=== PATIENT | male | born 1980 | race Asian ===

== ENCOUNTER 2019-01-12 15:48 | Inpatient (IN) | payer MEDICARE, OTHER ==
[~2019-01-12] VITALS: Ht 160 cm; Wt 51.3 kg
[~2019-01-12 15:48] MED LIST: OLAN20TA13 PO
[2019-01-12 18:34] LABS: Basophils # (auto) 0 uL; Basophils % (auto) 0.4 % (0.0-2.0); Eosinophils # (auto) 0.1 uL; Eosinophils % (auto) 1.1 % (0.0-7.0); Hematocrit 45.1 % (41.0-53.0); Hemoglobin 15.1 g/dL (13.5-17.5); Lymphocytes # (auto) 1.7 uL; Mean Corpuscular Hemoglobin 29.3 pg (28.0-32.0); Mean Corpuscular Hgb Conc. 33.5 g/dL (32.0-36.0); Mean Corpuscular Volume 87.3 fL (80.0-100.0); Monocytes # (auto) 0.5 uL; Monocytes % (auto) 5.1 % (0.0-12.0); Neutrophils # (auto) 8.2 uL; Neutrophils % (auto) 77.4 % (37.0-80.0); Nucleated Red Blood Cells % 0.3 %; Platelet Count (auto) 289 10^3/uL (140-450); Red Blood Cells 5.17 10^6/uL (4.5-5.90); Red Cell Distribution Width 13.7 % (11.8-14.3); White Blood Cell 10.6 10^3/uL (4.4-10.8)
[2019-01-12 18:47] LABS: Albumin 3.7 g/dL (3.4-5.0); BUN/Creatinine Ratio 11.7; Calcium 8.9 mg/dL (8.5-10.1); Potassium 3.3 mmol/L (3.5-5.1)
[2019-01-12 18:52] LABS: Bilirubin, Total 0.4 mg/dL (0.2-1.0); Total Protein 7.9 g/dL (6.4-8.2)
[2019-01-13] MEDS ORDERED: ONDANSETRON HCL 4 MG/2 ML VIAL IV ONE (05:15)
[2019-01-13] MEDS ORDERED: MORPHINE SULFATE 4 MG/ML SYR/VIAL IV ONE (05:15)
[2019-01-13] MEDS ORDERED: POTASSIUM CHL 20 Meq TABLET PO ONE (06:00)
[2019-01-13 07:10] LABS: Urine Bacteria FEW /hpf (None Seen); Urine Blood 1+ /uL (Negative); Urine Specific Gravity 1.003 (1.001-1.035); Urine WBC 38 /hpf (0 - 3)
[2019-01-13] MEDS ORDERED: cefTRIAXone 1GM/50ML D5W 50 ML IV ONE (08:45)
[2019-01-13] MEDS ORDERED: MORPHINE SULF INJ 2 MG/ML SYRINGE 1ML IV PRN ×2 (11:00)
[2019-01-13] MEDS ORDERED: ONDANSETRON HCL 4 MG/2 ML VIAL IV PRN (11:00)
[2019-01-13] MEDS ORDERED: ACETAMINOPHEN 500 MG TAB PO PRN (11:00)
[2019-01-13] MEDS ORDERED: NITROGLYCERIN 0.4 MG SL TAB SL PRN (11:00)
[2019-01-13] MEDS: SODIUM CHLORIDE 0.9% 1,000 ML IV SCH (11:05)
[2019-01-13] MEDS ORDERED: LIDOCAINE 2%HCL (LOCAL ANESTH.) INJ 20ML MDV ONE (12:06)
[2019-01-13] MEDS ORDERED: IODIXANOL 320MG/ML 100ML BTL IV ONE (12:06)
[2019-01-13] MEDS ORDERED: IOHEXOL 350 MG/ML 100ML IJ ONE (13:14)
[2019-01-13] MEDS ORDERED: MIDAZOLAM HCL 1MG/1ML-2 ML VIAL ONE (13:15)
[2019-01-13] MEDS ORDERED: fentaNYL CITRATE 100 MCG/2 ML VL ONE (13:15)
[2019-01-13 13:38] LABS: INR 0.97 (0.9-1.15); Partial Thromboplastin Time 29.1 sec (23.64-32.05)
[2019-01-13 16:00] VITALS: BP 122/69
--- NOTE | 2019-01-13 16:00 | NUR ---
MS admit from [employer] LIANNE DEGROOT admitted to tele/MS after SBAR received. Patient oriented to Hanna Nur, primary RN, unit, room, bed, and unit policies regarding patient care and visiting hours. Patient is awake, alert and oriented X4. No S/S of SOB or distress, complains of right lower flank pain, 4/10, Laughlin Romano scale. IV to left antecubital, 20 gauge, patent and saline locked. Right posterior flank nephrostomy tube with draining bag, draining 50 ml's of clear, blood tinged drainage. Patient weighed by bedscale and encouraged to call if they need something. All questions and concerns addressed, patient verbalized understanding. Bed locked, in lowest position, call light within reach, will continue to monitor Q 1 hour and PRN.
[2019-01-13] MEDS ORDERED: ACET300T4 PO (18:57)
--- NOTE | 2019-01-13 19:16 | NUR ---
Care endorsed to LILY Owusu, night nurse.
--- NOTE | 2019-01-13 19:50 | NUR ---
Opening Shift Note Assumed care of patient, awake and alert. No S/S of distress/SOB or pain. Instructed on POC and to call for assist PRN. Bed in lowest locked position, call light within reach, side rails up x2. Will continue to monitor for changes Q1hr and PRN.
--- NOTE | 2019-01-13 21:05 | NUR ---
IV insertion IV access obtained, via clean sterile technique by inserting 22 gauge catheter at right upper arm after 1 attempt. IV secured properly. No trauma to site. Patient tolerated procedure well. Previous IV reddened and painful, IV DC'd.
[2019-01-13] MEDS: OLANZapine 5 MG TAB PO SCH (21:52)
[2019-01-13 22:00] VITALS: BP 120/76
[2019-01-14] MEDS: SODIUM CHLORIDE 0.9% 1,000 ML IV SCH ×2 (00:14→09:41)
[2019-01-14 05:55] VITALS: BP 107/70
[2019-01-14 06:55] LABS: Basophils # (auto) 0 uL; Basophils % (auto) 0.3 % (0.0-2.0); Eosinophils # (auto) 0.3 uL; Eosinophils % (auto) 4.1 % (0.0-7.0); Hemoglobin 14.2 g/dL (13.5-17.5); Lymphocytes # (auto) 1.7 uL; Lymphocytes % (auto) 24.4 % (10.0-50.0); Mean Corpuscular Hemoglobin 29.6 pg (28.0-32.0); Mean Corpuscular Hgb Conc. 33.8 g/dL (32.0-36.0); Mean Corpuscular Volume 87.6 fL (80.0-100.0); Monocytes # (auto) 0.6 uL; Neutrophils # (auto) 4.4 uL; Neutrophils % (auto) 63.2 % (37.0-80.0); Platelet Count (auto) 230 10^3/uL (140-450); Red Blood Cells 4.79 10^6/uL (4.5-5.90)
[2019-01-14 07:18] LABS: Calcium 8.3 mg/dL (8.5-10.1); Potassium 3.9 mmol/L (3.5-5.1)
--- NOTE | 2019-01-14 08:00 | NUR ---
Opening Shift Note Assumed care of patient, awake and alert. Sitting in bed. No S/S of distress/SOB. Patient explains todays pain is less than yesterday. Bed in lowest locked position, side rails up x2, call light within reach. Patient instructed on POC and to call for assist PRN, will continue to monitor for changes Q1hr and PRN.
[2019-01-14 09:00] VITALS: BP 123/82
[2019-01-14] MEDS: OLANZapine 5 MG TAB PO SCH ×2 (09:40→21:38)
[2019-01-14] MEDS: FAMOTIDINE 20 MG TAB PO SCH (09:40)
[2019-01-14] MEDS: cefTRIAXone 1GM/50ML D5W 50 ML IV SCH (09:41)
--- NOTE | 2019-01-14 10:40 | NUR ---
UROLOGY Dr Michael King at bedside for rounds, new orders received and followed through. Patient updated on plan of care, verbalized understanding.
[2019-01-14 13:00] VITALS: BP 116/74
[2019-01-14 17:00] VITALS: BP 113/74
--- NOTE | 2019-01-14 19:16 | NUR ---
Care endorsed to LILY Owusu, night nurse.
[2019-01-14 22:00] VITALS: BP 107/75
[2019-01-15] MEDS: SODIUM CHLORIDE 0.9% 1,000 ML IV SCH ×2 (00:12→20:59)
[2019-01-15 05:00] VITALS: BP 108/72
[2019-01-15 08:00] VITALS: BP 127/72
--- NOTE | 2019-01-15 08:00 | NUR ---
Care assumed of patient, AM assessment complete, no signs or symptoms of acute distress noted, patient alert and oriented, complains of abdominal and back pain rated 9/10, to be medicated per prn orders, respirations equal and unlabored, breath sounds clear, bowel sounds active [id number], bilateral radial and pedal pulses palpable, will continue to monitor, call light within reach
[2019-01-15] MEDS: OLANZapine 5 MG TAB PO SCH ×2 (09:25→21:11)
[2019-01-15] MEDS: FAMOTIDINE 20 MG TAB PO SCH (09:25)
[2019-01-15] MEDS: cefTRIAXone 1GM/50ML D5W 50 ML IV SCH (09:25)
[2019-01-15] MEDS: HYDROcodone-ACET 5/325MG TAB PO PRN ×2 (09:25→21:11)
[2019-01-15] MEDS ORDERED: MIDAZOLAM HCL 1MG/1ML-2 ML VIAL ONE (16:07)
[2019-01-15] MEDS ORDERED: LIDOCAINE 2%HCL (LOCAL ANESTH.) INJ 20ML MDV ONE (16:08)
[2019-01-15] MEDS ORDERED: fentaNYL CITRATE 100 MCG/2 ML VL ONE (16:09)
[2019-01-15 19:30] VITALS: BP 104/69
[2019-01-15 20:30] VITALS: BP 125/77
[2019-01-15] MEDS: LEVOFLOXACIN 500MG 100 ML IV SCH (20:58)
[2019-01-15 21:46] VITALS: BP 123/81
[2019-01-15 22:30] VITALS: BP 122/78
[2019-01-16 04:52] VITALS: BP 96/59
[2019-01-16] MEDS: SODIUM CHLORIDE 0.9% 1,000 ML IV SCH (05:24)
--- NOTE | 2019-01-16 08:00 | NUR ---
Opening Shift Note Assumed care of patient, awake and alert. Pt c/o pain to right nephrostomy tube insertion site. [place] to be given. No other c/o pain or discomfort. Right nephrostomy tube draining clear yellow urine. No hematuria apparent. Pt instructed on POC and to call for assist PRN, will continue to monitor for changes Q1hr and PRN.
[2019-01-16] MEDS: HYDROcodone-ACET 5/325MG TAB PO PRN ×2 (08:45→15:05)
[2019-01-16 09:00] VITALS: BP 108/71
[2019-01-16] MEDS: LEVOFLOXACIN 500MG 100 ML IV SCH (10:38)
[2019-01-16] MEDS: FAMOTIDINE 20 MG TAB PO SCH (10:38)
[2019-01-16] MEDS: OLANZapine 5 MG TAB PO SCH ×2 (10:38→20:51)
--- NOTE | 2019-01-16 12:00 | NUR ---
Drainage bag to right nephrostomy tube removed, and tube clamped per communication orders by Dr. Peres. Pt instructed to notify nursing staff of urinary retention, pain with voiding, or apparent blood in urine. Pt verbalizes understanding.
[2019-01-16 13:13] VITALS: BP 118/75
[2019-01-16 16:58] VITALS: BP 113/64
--- NOTE | 2019-01-16 18:00 | NUR ---
Nephrostomy tube remains clamped. Pt states that he is voiding large amts without difficulty. Pt denies pain with voiding. Pt states that urine remains clear yellow. No other c/o pain or discomfort at this time.
--- NOTE | 2019-01-16 19:30 | NUR ---
Opening Shift Note Assumed care of patient, awake and alert. No S/S of distress/SOB or pain. Instructed on POC and to call for assist PRN, will continue to monitor for changes Q1hr and PRN. Call jolly with in reach. Nephrostomy capped and intact to right flank.
[2019-01-16 22:00] VITALS: BP 122/79
[2019-01-17 05:59] VITALS: BP 118/76
[2019-01-17 09:00] VITALS: BP 115/76
[2019-01-17] MEDS: LEVOFLOXACIN 500MG 100 ML IV SCH (10:27)
[2019-01-17] MEDS: OLANZapine 5 MG TAB PO SCH ×2 (10:27→20:33)
[2019-01-17] MEDS: FAMOTIDINE 20 MG TAB PO SCH (10:27)
[2019-01-17] MEDS: HYDROcodone-ACET 5/325MG TAB PO PRN ×2 (10:28→16:47)
[2019-01-17 13:00] VITALS: BP 124/77
[2019-01-17 17:00] VITALS: BP 121/77
[2019-01-17 22:00] VITALS: BP 112/79
[2019-01-18 05:00] VITALS: BP 118/77
--- NOTE | 2019-01-18 06:39 | NUR ---
Patient kept NPO since midnight for a procedure today. Patient aware not to eat breakfast.
--- NOTE | 2019-01-18 08:10 | NUR ---
Opening Note Assumed care of patient, he is A & O x4, POC discussed with patient. He is supposed to have a nephrostomy tube removed today. No s/s of distress at this time. Bed is in low, locked position, call light within reach. Patient is ambulatory and safe when walking. Will continue to monitor Q1h and PRN.
[2019-01-18 08:53] VITALS: BP 138/87
[2019-01-18] MEDS: HYDROcodone-ACET 5/325MG TAB PO PRN (10:46)
[2019-01-18] MEDS: FAMOTIDINE 20 MG TAB PO SCH (10:47)
[2019-01-18] MEDS: OLANZapine 5 MG TAB PO SCH ×2 (10:47→21:25)
[2019-01-18] MEDS: LEVOFLOXACIN 500MG 100 ML IV SCH (10:48)
--- NOTE | 2019-01-18 11:30 | NUR ---
Patient to procedure in radiology
[2019-01-18 13:19] VITALS: BP 123/84
[2019-01-18] MEDS ORDERED: HYDROcodone-ACET 5/325MG TAB PO PRN (14:00)
--- NOTE | 2019-01-18 15:33 | NUR ---
Nutrition Assessment Notes please see attached link for complete assessment Est. Needs BW 51 [id number] kcal (25-30 kcal/kgBW), 51-61 gms pro (1.0-1.2 gms/kgBW). Will continue to monitor pertinent labs and reassess nutrient need prn Addendum: 01/18/19 at [address] Amended: Links added.
[2019-01-18 17:00] VITALS: BP 133/85
[2019-01-18 21:00] VITALS: BP 132/84
[2019-01-19 02:48] LABS: Urine Bacteria FEW /hpf (None Seen); Urine Blood 2+ /uL (Negative); Urine Mucus FEW (None Seen); Urine Specific Gravity 1.008 (1.001-1.035); Urine WBC 7 /hpf (0 - 3)
[2019-01-19 05:00] VITALS: BP 110/74
[2019-01-19 07:30] LABS: Basophils # (auto) 0 uL; Basophils % (auto) 0.7 % (0.0-2.0); Eosinophils # (auto) 0.4 uL; Eosinophils % (auto) 6.5 % (0.0-7.0); Hemoglobin 17.5 g/dL (13.5-17.5); Lymphocytes # (auto) 2.6 uL; Lymphocytes % (auto) 40.6 % (10.0-50.0); Mean Corpuscular Hemoglobin 29.3 pg (28.0-32.0); Mean Corpuscular Hgb Conc. 33.6 g/dL (32.0-36.0); Mean Corpuscular Volume 87.2 fL (80.0-100.0); Monocytes # (auto) 0.4 uL; Monocytes % (auto) 6.9 % (0.0-12.0); Neutrophils # (auto) 2.9 uL; Neutrophils % (auto) 45.3 % (37.0-80.0); Nucleated Red Blood Cells % 0.1 %; Platelet Count (auto) 298 10^3/uL (140-450); Red Blood Cells 5.96 10^6/uL (4.5-5.90); Red Cell Distribution Width 13.9 % (11.8-14.3); White Blood Cell 6.4 10^3/uL (4.4-10.8)
--- NOTE | 2019-01-19 07:30 | NUR ---
Opening Note Assumed care of patient. He is A & O x4, no s/s of distress. POC discussed with patient for discharge pending today. Bed is in low, locked position, call light within reach. Patient is ambulatory and walks around the nursing station often. Will continue to monitor Q1h and PRN.
[2019-01-19 07:45] LABS: INR 0.97 (0.9-1.15); Partial Thromboplastin Time 28.6 sec (23.64-32.05)
[2019-01-19 07:50] LABS: Albumin 3.6 g/dL (3.4-5.0); BUN/Creatinine Ratio 18.4; Potassium 4.4 mmol/L (3.5-5.1)
[2019-01-19 09:00] VITALS: BP 131/78
[2019-01-19 09:31] LABS: Bilirubin, Total 0.4 mg/dL (0.2-1.0); Total Protein 8.2 g/dL (6.4-8.2)
[2019-01-19] MEDS ORDERED: LEVO-28 PO (09:56)
[2019-01-19] MEDS ORDERED: LEVOFLOXACIN 500 MG TAB PO ONE (10:00)
[2019-01-19] MEDS: OLANZapine 5 MG TAB PO SCH (10:57)
[2019-01-19] MEDS: FAMOTIDINE 20 MG TAB PO SCH (10:58)
--- NOTE | 2019-01-19 14:05 | NUR ---
Patient Discharged Addendum: 01/19/19 at 1409 by VANESSA FRANCIS RN RN Amended: Links added.
--- NOTE | 2019-01-19 14:25 | NUR ---
Discharge instructions given as ordered. Encourage to follow up with PMD as instructed. All questions and concerns addressed. Patient verbalized understanding. Medication reconciliation form completed and copy given to patient. Patient prescription filled and given medications. IV removed with catheter intact, pressure dressing applied. ID bands removed. Patient ambulated to taxi with all personal belongings, accompanied by staff member. No distress noted at time of departure.
[2019-01-21 09:39] LABS: Hepatitis B Surface Antibody Negative
[2019-01-21 10:09] LABS: Hepatitis A Total Antibody Positive
[2019-01-21 10:39] LABS: Hepatitis B Surface Antigen Negative (Negative); Hepatitis C Antibody Negative (Negative)
[2019-01-21 10:49] LABS: Hepatitis B Core Total AB Positive
== END 2019-01-19 14:25 | disposition home or self-care (01) | DRG 660 ==
LOC: ER 15:48 → OVERFLOW 15:49 → CENTRAL 01-13 13:56
PROVIDERS: ADMIT Nurse Practitioner Acute Care; ATTEND Internal Medicine
PROC: 0T768DZ Dilation of Right Ureter with Intraluminal Device, Via Natural or Artificial Opening Endoscopic (ICD-10-PCS; principal; 2019-01-15)
PROC: 0T25X0Z Change Drainage Device in Kidney, External Approach (ICD-10-PCS; 2019-01-15)
PROC: BT161ZZ Fluoroscopy of Right Ureter using Low Osmolar Contrast (ICD-10-PCS; 2019-01-15)
DX: T83.022A Displacement of nephrostomy catheter, initial encounter (principal); N13.6 Pyonephrosis; E87.6 Hypokalemia; F20.9 Schizophrenia, unspecified; Y73.2 Prosthetic and other implants, materials and accessory gastroenterology and urology devices associated with adverse incidents; R31.9 Hematuria, unspecified; B96.20 Unspecified Escherichia coli [E. coli] as the cause of diseases classified elsewhere; K57.30 Diverticulosis of large intestine without perforation or abscess without bleeding; B96.1 Klebsiella pneumoniae [K. pneumoniae] as the cause of diseases classified elsewhere; N18.9 Chronic kidney disease, unspecified; B96.5 Pseudomonas (aeruginosa) (mallei) (pseudomallei) as the cause of diseases classified elsewhere; N40.0 Benign prostatic hyperplasia without lower urinary tract symptoms; Z90.5 Acquired absence of kidney; Z87.440 Personal history of urinary (tract) infections; Y92.89 Other specified places as the place of occurrence of the external cause
CPT/HCPCS: 36415; 52332; 74018; 74176; 76000; 80048; 80053; 80061; 81001; 83036; 83605; 84439; 84443; 85025; 85610; 85730; 86703; 86704; 86706; 86708; 86803; 86850; 86900; 86901; 87040; 87086; 87088; 87186; 87340; 96365; 96375; 99152; 99153; C1729; G0378; J0696; J1956; J2250; J2405; Q9967

== ENCOUNTER 2019-02-11 18:01 | Emergency (ER) | payer MEDICARE, OTHER ==
[~2019-02-11] VITALS: Ht 160 cm; Wt 49.9 kg
[~2019-02-11 18:01] MED LIST changes: +ACET300T4 PO; +LEVO-28 PO
[2019-02-11 18:33] LABS: Urine Bacteria NONE SEEN /hpf (None Seen); Urine Blood TRACE /uL (Negative); Urine Specific Gravity 1.011 (1.001-1.035); Urine WBC 21 /hpf (0 - 3)
[2019-02-11] MEDS ORDERED: SODIUM CHLORIDE 0.9% 1,000 ML IV ONE (19:45)
[2019-02-11 20:07] LABS: Eosinophils # (auto) 0.3 uL; Lymphocytes # (auto) 1.7 uL; Monocytes # (auto) 0.7 uL; White Blood Cell 9.3 10^3/uL (4.4-10.8)
[2019-02-11 20:08] LABS: Basophils # (auto) 0.1 uL; Basophils % (auto) 0.7 % (0.0-2.0); Eosinophils % (auto) 3.1 % (0.0-7.0); Hemoglobin 11.8 g/dL (13.5-17.5); Lymphocytes % (auto) 18.1 % (10.0-50.0); Mean Corpuscular Hemoglobin 28.2 pg (28.0-32.0); Mean Corpuscular Hgb Conc. 32.7 g/dL (32.0-36.0); Mean Corpuscular Volume 86.1 fL (80.0-100.0); Monocytes % (auto) 7.8 % (0.0-12.0); Neutrophils # (auto) 6.5 uL; Neutrophils % (auto) 70.3 % (37.0-80.0); Red Blood Cells 4.18 10^6/uL (4.5-5.90); Red Cell Distribution Width 14.1 % (11.8-14.3)
[2019-02-11 20:13] LABS: Albumin 2.6 g/dL (3.4-5.0); Anion Gap 8 (5-15); Blood Urea Nitrogen 9 mg/dL (7-18); Calcium 8.3 mg/dL (8.5-10.1); Carbon Dioxide 27 mmol/L (21-32); Chloride 103 mmol/L (98-107); Glucose 92 mg/dL (74-106); Potassium 3.2 mmol/L (3.5-5.1); Sodium 138 mmol/L (136-145)
[2019-02-11 20:15] LABS: BUN/Creatinine Ratio 9.8; GFR African American 117 mL/min; GFR Non-African American 97 mL/min
[2019-02-11 20:24] LABS: Alanine Aminotransferase 39 U/L (16-61); Alkaline Phosphatase 176 U/L (45-117); Aspartate Aminotransferase 26 U/L (15-37); Bilirubin, Total 0.5 mg/dL (0.2-1.0); Total Protein 7.6 g/dL (6.4-8.2)
[2019-02-11 21:10] LABS: Platelet Count (auto) 571 10^3/uL (140-450)
[2019-02-11] MEDS ORDERED: VANCOMYCIN 1GM/250ML 250 ML IV ONE (21:30)
[2019-02-11] MEDS ORDERED: cefTRIAXone 1GM/50ML D5W 50 ML IV ONE (21:30)
[2019-02-11] MEDS ORDERED: ONDANSETRON HCL 4 MG/2 ML VIAL IV ONE (22:45)
[2019-02-11] MEDS ORDERED: MORPHINE SULFATE 4 MG/ML SYR/VIAL IV ONE (22:45)
[2019-02-11 22:48] VITALS: BP 131/87
== END 2019-02-11 22:09 | disposition short-term general hospital (02) ==
LOC: ER 18:06
DX: K63.1 Perforation of intestine (nontraumatic) (principal); K66.8 Other specified disorders of peritoneum; Z98.890 Other specified postprocedural states
CPT/HCPCS: 36415; 74176; 80053; 81001; 83605; 85025; 87040; 96365; 96368; 99285; J0696; J2270; J2405; J3370; J7030

== ENCOUNTER 2019-05-21 22:07 | Emergency (ER) | payer MEDICARE, OTHER ==
[~2019-05-21] VITALS: Ht 160 cm; Wt 45.4 kg
[2019-05-22 00:13] LABS: Basophils # (auto) 0 uL; Basophils % (auto) 0.6 % (0.0-2.0); Eosinophils # (auto) 0.2 uL; Hematocrit 49.9 % (41.0-53.0); Hemoglobin 16.7 g/dL (13.5-17.5); Lymphocytes # (auto) 2.7 uL; Mean Corpuscular Hemoglobin 28.6 pg (28.0-32.0); Mean Corpuscular Hgb Conc. 33.4 g/dL (32.0-36.0); Mean Corpuscular Volume 85.8 fL (80.0-100.0); Monocytes # (auto) 0.8 uL; Monocytes % (auto) 9.7 % (0.0-12.0); Neutrophils # (auto) 4.4 uL; Neutrophils % (auto) 53.7 % (37.0-80.0); Nucleated Red Blood Cells % 0.1 %; Platelet Count (auto) 241 10^3/uL (140-450); Red Blood Cells 5.82 10^6/uL (4.5-5.90); Red Cell Distribution Width 15.5 % (11.8-14.3); White Blood Cell 8.3 10^3/uL (4.4-10.8)
[2019-05-22 00:33] LABS: Albumin 3.8 g/dL (3.4-5.0); BUN/Creatinine Ratio 14.2; Calcium 8.7 mg/dL (8.5-10.1); Potassium 3.6 mmol/L (3.5-5.1)
[2019-05-22 00:36] LABS: Bilirubin, Total 0.7 mg/dL (0.2-1.0); Total Protein 8.1 g/dL (6.4-8.2)
[2019-05-22 11:12] LABS: Urine Bacteria NONE SEEN /hpf (None Seen); Urine Blood Negative /uL (Negative); Urine Mucus FEW (None Seen); Urine Specific Gravity 1.021 (1.001-1.035); Urine WBC <1 /hpf (0 - 3)
[2019-05-22 17:48] VITALS: BP 146/84
[2019-05-22] MEDS ORDERED: LORazepam 2MG/ML-1ML VIAL IM ONE (18:45)
== END 2019-05-22 19:03 | disposition home or self-care (01) ==
LOC: ER 22:09
DX: N20.1 Calculus of ureter (principal); Z90.5 Acquired absence of kidney
CPT/HCPCS: 36415; 70450; 74176; 80053; 81001; 82150; 83690; 85025; 96372; 99284; J2060

== ENCOUNTER 2022-02-22 03:33 | Emergency (ER) | payer MEDICARE, OTHER ==
[~2022-02-22] VITALS: Ht 162.6 cm; Wt 70.0 kg
[~2022-02-22 03:33] MED LIST changes: +OLAN20TA PO; -OLAN20TA13 PO
[2022-02-22 04:41] LABS: Albumin 3.7 g/dL (3.4-5.0); Anion Gap 13 (5-15); Blood Alcohol < 3.0 mg/dL (0-5); Blood Urea Nitrogen 41 mg/dL (7-18); Calcium 8.8 mg/dL (8.5-10.1); Carbon Dioxide 21 mmol/L (21-32); Chloride 104 mmol/L (98-107); Glucose 95 mg/dL (74-106); Potassium 4.1 mmol/L (3.5-5.1); Sodium 138 mmol/L (136-145)
[2022-02-22 04:44] LABS: Salicylate < 1.7 mg/dL (2.8-20.0)
[2022-02-22 04:45] LABS: Alanine Aminotransferase 46 U/L (16-61); Alkaline Phosphatase 59 U/L (45-117); Aspartate Aminotransferase 101 U/L (15-37); BUN/Creatinine Ratio 13.9; Bilirubin, Total 0.8 mg/dL (0.2-1.0); GFR African American 30 mL/min; GFR Non-African American 25 mL/min; Total Protein 7.6 g/dL (6.4-8.2)
[2022-02-22 05:21] LABS: Acetaminophen < 2.0 ug/mL (10-30)
[2022-02-22 06:19] LABS: Basophils # (auto) 0.1 10 ^3/uL (0-0.2); Basophils % (auto) 0.7 % (0.0-2.0); Eosinophils # (auto) 0 10 ^3/uL (0-0.8); Eosinophils % (auto) 0.1 % (0.0-7.0); Hematocrit 31.5 % (41.0-53.0); Hemoglobin 10.6 g/dL (13.5-17.5); Lymphocytes # (auto) 1.2 10 ^3/uL (0.4-5.4); Lymphocytes % (auto) 12.8 % (10.0-50.0); Mean Corpuscular Hemoglobin 30.1 pg (28.0-32.0); Mean Corpuscular Hgb Conc. 33.6 g/dL (32.0-36.0); Mean Corpuscular Volume 89.8 fL (80.0-100.0); Monocytes # (auto) 0.7 10 ^3/uL (0-1.3); Monocytes % (auto) 7.4 % (0.0-12.0); Neutrophils # (auto) 7.5 10 ^3/uL (1.6-8.6); Red Blood Cells 3.51 10^6/uL (4.5-5.90); Red Cell Distribution Width 14.1 % (11.8-14.3); White Blood Cell 9.5 10^3/uL (4.4-10.8)
[2022-02-22] MEDS ORDERED: LORazepam 0.5 MG TAB PO ONE (09:30)
[2022-02-22 19:45] VITALS: BP 142/82
[2022-02-23] MEDS ORDERED: OLANZapine 5 MG TAB PO ONE ×2 (07:30→11:15)
[2022-02-23] MEDS ORDERED: OLANZapine 5 MG TAB ONE (08:04)
[2022-02-23] MEDS ORDERED: OLAN1TAB7 PO (11:14)
== END 2022-02-22 13:16 | disposition home or self-care (01) ==
LOC: EDUNIT# 03:33 → ER 03:33
DX: F20.9 Schizophrenia, unspecified (principal); F41.9 Anxiety disorder, unspecified; N18.9 Chronic kidney disease, unspecified
CPT/HCPCS: 36415; 80053; 80320; 80329; 85025

== ENCOUNTER 2022-10-14 17:34 | Inpatient (IN) | payer MEDICARE, OTHER ==
[~2022-10-14] VITALS: Ht 160 cm; Wt 54.7 kg
[~2022-10-14 17:34] MED LIST changes: +OLAN1TAB7 PO
[2022-10-14 18:42] LABS: Basophils # (auto) 0.1 10 ^3/uL (0-0.2); Basophils % (auto) 0.9 % (0.0-2.0); Eosinophils # (auto) 0.4 10 ^3/uL (0-0.8); Eosinophils % (auto) 6.1 % (0.0-7.0); Lymphocytes # (auto) 2.6 10 ^3/uL (0.4-5.4); Lymphocytes % (auto) 35.3 % (10.0-50.0); Mean Corpuscular Hemoglobin 29.9 pg (28.0-32.0); Mean Corpuscular Hgb Conc. 33.4 g/dL (32.0-36.0); Mean Corpuscular Volume 89.7 fL (80.0-100.0); Monocytes # (auto) 0.4 10 ^3/uL (0-1.3); Monocytes % (auto) 5.9 % (0.0-12.0); Neutrophils # (auto) 3.8 10 ^3/uL (1.6-8.6); Neutrophils % (auto) 51.8 % (37.0-80.0); Nucleated Red Blood Cells % 0.1 %; Red Blood Cells 4.68 10^6/uL (4.5-5.90); Red Cell Distribution Width 13.5 % (11.8-14.3); White Blood Cell 7.3 10^3/uL (4.4-10.8)
[2022-10-14 19:19] LABS: Albumin 3.8 g/dL (3.4-5.0); Calcium 8.8 mg/dL (8.5-10.1); Potassium 3.8 mmol/L (3.5-5.1)
[2022-10-14 19:22] LABS: BUN/Creatinine Ratio 12.8 (10.0-20.0); Bilirubin, Total 0.2 mg/dL (0.2-1.0); Total Protein 7.3 g/dL (6.4-8.2)
[2022-10-14] MEDS ORDERED: SODIUM CHLORIDE 0.9% 1,000 ML IV SCH (22:30)
[2022-10-14] MEDS ORDERED: TAMSULOSIN HYDROCHLORIDE 0.4 MG CAP PO ONE (22:45)
[2022-10-14] MEDS ORDERED: cefTRIAXone 1GM/50ML D5W 50 ML IV ONE (22:45)
[2022-10-14 22:57] LABS: Urine WBC None Seen /hpf (0 - 3)
[2022-10-14 23:12] LABS: Urine Bacteria NONE SEEN /hpf (None Seen); Urine Blood Negative /uL (Negative); Urine Specific Gravity 1.003 (1.001-1.035)
[2022-10-15] MEDS: SODIUM CHLORIDE 0.9% 1,000 ML IV SCH ×4 (01:05→18:56)
[2022-10-15] MEDS: hydrALAZINE HCL 20 MG/ML VL IV PRN ×2 (01:33→21:06)
[2022-10-15 06:28] LABS: Basophils # (auto) 0.1 10 ^3/uL (0-0.2); Basophils % (auto) 0.7 % (0.0-2.0); Eosinophils # (auto) 0.2 10 ^3/uL (0-0.8); Eosinophils % (auto) 2.2 % (0.0-7.0); Hematocrit 41.4 % (41.0-53.0); Hemoglobin 14.2 g/dL (13.5-17.5); Lymphocytes # (auto) 2.1 10 ^3/uL (0.4-5.4); Lymphocytes % (auto) 25.4 % (10.0-50.0); Mean Corpuscular Hemoglobin 30.7 pg (28.0-32.0); Mean Corpuscular Hgb Conc. 34.4 g/dL (32.0-36.0); Mean Corpuscular Volume 89.1 fL (80.0-100.0); Monocytes # (auto) 0.6 10 ^3/uL (0-1.3); Monocytes % (auto) 6.9 % (0.0-12.0); Neutrophils # (auto) 5.3 10 ^3/uL (1.6-8.6); Neutrophils % (auto) 64.8 % (37.0-80.0); Nucleated Red Blood Cells % 0.1 %; Red Blood Cells 4.64 10^6/uL (4.5-5.90); Red Cell Distribution Width 13.7 % (11.8-14.3); White Blood Cell 8.2 10^3/uL (4.4-10.8)
[2022-10-15 06:47] LABS: Albumin 3.6 g/dL (3.4-5.0); Calcium 8.9 mg/dL (8.5-10.1); Potassium 3.4 mmol/L (3.5-5.1)
[2022-10-15 06:51] LABS: BUN/Creatinine Ratio 12.9 (10.0-20.0); Bilirubin, Total 0.4 mg/dL (0.2-1.0); Total Protein 7.1 g/dL (6.4-8.2)
[2022-10-15] MEDS: cefTRIAXone 1GM/50ML D5W 50 ML IV SCH (09:30)
[2022-10-15] MEDS ORDERED: POTASSIUM CHL 20 Meq TABLET PO ONE (09:30)
[2022-10-15] MEDS ORDERED: MAGNESIUM SULFATE 1GM/100ML 100 ML IV ONE (09:30)
[2022-10-15] MEDS: OLANZapine 5 MG TAB PO SCH ×2 (09:31→21:43)
[2022-10-15 10:26] LABS: INR 1.02 (0.9-1.15); Partial Thromboplastin Time 26.7 sec (24.6-33.4)
[2022-10-15 12:54] LABS: Urine Bacteria NONE SEEN /hpf (None Seen); Urine Blood Negative /uL (Negative); Urine Specific Gravity 1.009 (1.001-1.035); Urine WBC <1 /hpf (0 - 3)
[2022-10-15] MEDS: TAMSULOSIN HYDROCHLORIDE 0.4 MG CAP PO SCH (18:07)
[2022-10-15] MEDS ORDERED: METOPROLOL TARTRATE 1MG/1ML-5ML VIAL IV ONE (21:30)
[2022-10-15 23:04] VITALS: BP 141/91
[2022-10-16] MEDS ORDERED: OLAN1TAB19 PO (00:10)
[2022-10-16] MEDS ORDERED: DIVA1TAB38 PO (00:10)
[2022-10-16] MEDS ORDERED: OLAN20TA30 PO (00:10)
[2022-10-16 05:00] VITALS: BP 147/99
[2022-10-16] MEDS: SODIUM CHLORIDE 0.9% 1,000 ML IV SCH ×2 (05:00→14:45)
[2022-10-16 06:51] LABS: Potassium 4.1 mmol/L (3.5-5.1)
[2022-10-16 07:00] LABS: BUN/Creatinine Ratio 11.2 (10.0-20.0); Calcium 9.7 mg/dL (8.5-10.1)
[2022-10-16] MEDS ORDERED: IOHEXOL 350 MG/ML 100ML IJ ONE (07:51)
[2022-10-16 08:57] VITALS: BP 160/109
[2022-10-16] MEDS: cefTRIAXone 1GM/50ML D5W 50 ML IV SCH (09:00)
[2022-10-16] MEDS: OLANZapine 5 MG TAB PO SCH ×2 (10:00→21:07)
[2022-10-16 12:55] VITALS: BP 153/108
[2022-10-16 17:00] VITALS: BP 135/102
[2022-10-16] MEDS: TAMSULOSIN HYDROCHLORIDE 0.4 MG CAP PO SCH (18:00)
[2022-10-16 21:40] VITALS: BP 156/107
[2022-10-17] MEDS: SODIUM CHLORIDE 0.9% 1,000 ML IV SCH ×4 (00:47→23:59)
[2022-10-17 05:19] VITALS: BP 133/94
[2022-10-17 05:20] LABS: Basophils # (auto) 0 10 ^3/uL (0-0.2); Basophils % (auto) 0.6 % (0.0-2.0); Eosinophils # (auto) 0.2 10 ^3/uL (0-0.8); Eosinophils % (auto) 2.2 % (0.0-7.0); Hemoglobin 15.6 g/dL (13.5-17.5); Lymphocytes # (auto) 1.5 10 ^3/uL (0.4-5.4); Lymphocytes % (auto) 19.3 % (10.0-50.0); Mean Corpuscular Hemoglobin 30.6 pg (28.0-32.0); Mean Corpuscular Hgb Conc. 33.9 g/dL (32.0-36.0); Mean Corpuscular Volume 90.1 fL (80.0-100.0); Monocytes # (auto) 0.7 10 ^3/uL (0-1.3); Monocytes % (auto) 8.4 % (0.0-12.0); Neutrophils # (auto) 5.6 10 ^3/uL (1.6-8.6); Neutrophils % (auto) 69.5 % (37.0-80.0); Nucleated Red Blood Cells % 0.1 %; Red Cell Distribution Width 13.6 % (11.8-14.3)
[2022-10-17 05:32] LABS: BUN/Creatinine Ratio 12.2 (10.0-20.0); Calcium 9.7 mg/dL (8.5-10.1); Potassium 4.2 mmol/L (3.5-5.1)
[2022-10-17 08:32] VITALS: BP 148/98
[2022-10-17] MEDS: OLANZapine 5 MG TAB PO SCH (09:00)
[2022-10-17] MEDS: cefTRIAXone 1GM/50ML D5W 50 ML IV SCH (10:09)
[2022-10-17 12:30] VITALS: BP 135/113
[2022-10-17] MEDS ORDERED: OLANZapine 5 MG TAB PO ONE (16:15)
[2022-10-17 16:54] VITALS: BP_SYST 153; BP_SYST 157; BP_DIAS 80; BP_DIAS 81
[2022-10-17] MEDS: TAMSULOSIN HYDROCHLORIDE 0.4 MG CAP PO SCH (18:27)
[2022-10-17 22:00] VITALS: BP_SYST 139; BP_SYST 142; BP_DIAS 88
[2022-10-18 05:00] VITALS: BP 143/92
[2022-10-18 09:00] VITALS: BP 140/90
[2022-10-18] MEDS: cefTRIAXone 1GM/50ML D5W 50 ML IV SCH (09:42)
[2022-10-18] MEDS ORDERED: OLANZapine 5 MG TAB PO SCH (10:00)
[2022-10-18 13:00] VITALS: BP 143/88
[2022-10-18] MEDS: SODIUM CHLORIDE 0.9% 1,000 ML IV SCH ×2 (16:45→21:27)
[2022-10-18 17:00] VITALS: BP 146/90
[2022-10-18] MEDS: TAMSULOSIN HYDROCHLORIDE 0.4 MG CAP PO SCH (17:28)
[2022-10-18 21:53] VITALS: BP 132/92
[2022-10-19 05:00] VITALS: BP 134/91
[2022-10-19 09:00] VITALS: BP 138/93
[2022-10-19] MEDS: OLANZapine 5 MG TAB PO SCH (10:07)
[2022-10-19] MEDS: cefTRIAXone 1GM/50ML D5W 50 ML IV SCH (10:10)
[2022-10-19] MEDS: SODIUM CHLORIDE 0.9% 1,000 ML IV SCH ×2 (12:45→21:00)
[2022-10-19 12:50] VITALS: BP 138/85
[2022-10-19] MEDS: TAMSULOSIN HYDROCHLORIDE 0.4 MG CAP PO SCH (19:40)
[2022-10-19 22:00] VITALS: BP 136/84
[2022-10-20] MEDS: SODIUM CHLORIDE 0.9% 1,000 ML IV SCH ×3 (01:00→18:45)
[2022-10-20 05:00] VITALS: BP 129/79
[2022-10-20 08:30] VITALS: BP 156/93
[2022-10-20] MEDS: OLANZapine 5 MG TAB PO SCH (08:56)
[2022-10-20] MEDS: cefTRIAXone 1GM/50ML D5W 50 ML IV SCH (08:56)
[2022-10-20] MEDS: hydrALAZINE HCL 20 MG/ML VL IV PRN (08:57)
[2022-10-20 12:19] VITALS: BP 128/72
[2022-10-20 16:27] VITALS: BP 132/87
[2022-10-20] MEDS: TAMSULOSIN HYDROCHLORIDE 0.4 MG CAP PO SCH (18:24)
[2022-10-20 20:00] VITALS: BP 130/69
[2022-10-21] MEDS: SODIUM CHLORIDE 0.9% 1,000 ML IV SCH ×2 (00:16→18:03)
[2022-10-21 05:00] VITALS: BP 138/87
[2022-10-21 09:28] VITALS: BP 128/77
[2022-10-21] MEDS: OLANZapine 5 MG TAB PO SCH (09:54)
[2022-10-21] MEDS: cefTRIAXone 1GM/50ML D5W 50 ML IV SCH (09:54)
[2022-10-21 13:00] VITALS: BP 147/95
[2022-10-21 16:08] LABS: Basophils # (auto) 0 10 ^3/uL (0-0.2); Basophils % (auto) 0.7 % (0.0-2.0); Eosinophils # (auto) 0.5 10 ^3/uL (0-0.8); Eosinophils % (auto) 8.7 % (0.0-7.0); Hematocrit 39.9 % (41.0-53.0); Hemoglobin 13.4 g/dL (13.5-17.5); Lymphocytes # (auto) 1.8 10 ^3/uL (0.4-5.4); Lymphocytes % (auto) 31.1 % (10.0-50.0); Mean Corpuscular Hemoglobin 29.8 pg (28.0-32.0); Mean Corpuscular Hgb Conc. 33.5 g/dL (32.0-36.0); Mean Corpuscular Volume 88.9 fL (80.0-100.0); Monocytes # (auto) 0.4 10 ^3/uL (0-1.3); Monocytes % (auto) 7.7 % (0.0-12.0); Neutrophils % (auto) 51.8 % (37.0-80.0); Nucleated Red Blood Cells % 0.1 %; Red Blood Cells 4.49 10^6/uL (4.5-5.90); Red Cell Distribution Width 13.1 % (11.8-14.3); White Blood Cell 5.8 10^3/uL (4.4-10.8)
[2022-10-21 16:22] LABS: BUN/Creatinine Ratio 12.9 (10.0-20.0); Calcium 8.6 mg/dL (8.5-10.1); Potassium 3.6 mmol/L (3.5-5.1)
[2022-10-21 17:06] VITALS: BP 133/66
[2022-10-21] MEDS: TAMSULOSIN HYDROCHLORIDE 0.4 MG CAP PO SCH (18:05)
[2022-10-21 22:00] VITALS: BP 114/82
[2022-10-22 05:00] VITALS: BP 116/79
[2022-10-22] MEDS: SODIUM CHLORIDE 0.9% 1,000 ML IV SCH ×2 (06:09→10:45)
[2022-10-22 09:00] VITALS: BP 127/83
[2022-10-22] MEDS: OLANZapine 5 MG TAB PO SCH (09:00)
[2022-10-22] MEDS: cefTRIAXone 1GM/50ML D5W 50 ML IV SCH (09:00)
[2022-10-22 13:00] VITALS: BP 115/69
[2022-10-22 16:25] VITALS: BP 156/96
[2022-10-22 17:00] VITALS: BP 122/82
[2022-10-22] MEDS: TAMSULOSIN HYDROCHLORIDE 0.4 MG CAP PO SCH (18:00)
== END 2022-10-22 18:59 | DRG 684 ==
LOC: ER 17:34 → OVERFLOW 22:32 → WEST WING 10-15 22:03 → TELE-WESTW 10-15 22:25 → WEST WING 10-21 18:23
PROVIDERS: ADMIT Nurse Practitioner Family; ATTEND Internal Medicine
DX: N17.9 Acute kidney failure, unspecified (principal); F20.9 Schizophrenia, unspecified; Z53.20 Procedure and treatment not carried out because of patient's decision for unspecified reasons; R79.89 Other specified abnormal findings of blood chemistry; R94.31 Abnormal electrocardiogram [ECG] [EKG]; N13.9 Obstructive and reflux uropathy, unspecified; N18.30 Chronic kidney disease, stage 3 unspecified; Z81.8 Family history of other mental and behavioral disorders; Z90.5 Acquired absence of kidney; Z87.440 Personal history of urinary (tract) infections
CPT/HCPCS: 36415; 70450; 74176; 76775; 80048; 80053; 81001; 82306; 83036; 83690; 84443; 84484; 85025; 85610; 85730; 93005; 96361; 96365; 96366; 96367; 96375; G0378; J0696